=== PATIENT | male | born 1940 | race Caucasian/White ===

== ENCOUNTER → 2016-12-19 | Outpatient (CLI) | payer OTHER ==
[~2016-12-19] MED LIST: ASPEC81 PO; ATOR-26 PO; CHOL20007 PO; CLOP1TAB15 PO; DRV100 PO; METO50TA7 PO; NTRGSL/4; NTRGSL/4 UT; PRED1SUS OPL; TRAM-10 PO
== END | disposition home or self-care (01) ==
LOC: C.LABBC 07:49
PROVIDERS: ATTEND Internal Medicine Cardiovascular Disease
DX: I25.10 Atherosclerotic heart disease of native coronary artery without angina pectoris (principal); E78.5 Hyperlipidemia, unspecified

== ENCOUNTER → 2017-02-20 | Day surgery (SDC) | payer OTHER ==
[2017-02-11 10:43] VITALS: Ht 172.7 cm; Wt 81.8 kg
[~2017-02-20] VITALS: Ht 172.7 cm; Wt 81.8 kg
[~2017-02-20] MED LIST changes: +500ML BSS 0.3ML EPI 1:1000PF IRRIG ONE; +ACETAMINOPHEN 325 MG TAB PO PRN; +AMVISC PLUS 0.8ML SYRINGE INT OCU ONE; +ATROPINE SULFATE 0.1 MG/ML 5ML SYR IV PRN; +AcetaZOLAMIDE 250 MG TAB PO SCH; +BETAXOLOL HCL 0.25% OP SUSP PER DROP CHARGE OPL SCH; +BRIMONIDINE TART 0.2% OP SOLN PER DROP CHARGE ONE; +BSS FLUSH ONE; -DRV100 PO; +ENDOCOAT 0.85ML SYRINGE INT OCU ONE; +EpHEDrine SULFATE INJ 50 MG/ML AMP IV PRN; +EpINEphrine INJ 1MG/ML AMP 1 MG/ML AMP ONE; +FENTANYL CITRATE INJ 50 MCG/1 ML 2 ML VIAL IV PRN; +FLUMAZENIL 0.1 MG/1 ML 10 ML VIAL IV PRN; +HYDROmorphone INJ 2 MG/ML SYR/VIAL IV PRN; +LABETALOL HCL IV 5 MG/ML 20ML IV PRN; +LACTATED RINGER'S 1000ML 500 ML IV SCH; +LIDOCAINE 4% OP SOLN DROP CHARGE ONE; +LIDOCAINE 4% OP SOLN DROP CHARGE OPL SCH; +LIDOCAINE HCL 1% MPF 2 ML VIAL ONE; +MEPERIDINE HCL 25 MG/ML CARP IV PRN; +MIDAZOLAM HCL 1 MG/ML 2ML VIAL ONE; +MIX: 4ML BSS 1ML EPI 1:1000 PF INSTIL ONE; +MOXIFLOXACIN OPH SOLN PER DROP CHARGE ONE; +NALOXONE HCL 0.4 MG/1 ML VIAL/CARP IV PRN; -NTRGSL/4; +OCUCOAT 1 ML SOLN IO ONE; +ONDANSETRON INJ 2 MG/ML 2 ML VIAL IV PRN; +PHENYLEPHRINE 100MCG/ML 5ML SYR IV PRN; +POVIDONE-IODINE OP SOLN 30 ML BTL ONE; +PROPARACAINE 0.5% OP SOLN PER DROP CHARGE OPL SCH; +TOBRAMYCIN/DEXAMETHASONE OPH OINT PER APPLN CHARGE ONE
--- NOTE | 2017-02-20 08:59 | History & Physical Bridge - [place] ---
H&P Re-Evaluation Bridge Note: I have examined the patient, reviewed the History & Physical and in the interval since the performance of the History & Physical I have noted the following changes of clinical significance: No changes noted
[2017-02-20] MEDS: PHENYLEPHRINE HCL 2.5% OP SOLN PER DROP CHARGE OPL SCH ×2 (09:53→09:58)
[2017-02-20] MEDS: TROPICAMIDE 1% OP SOLN PER DROP CHARGE OPL SCH ×2 (09:54→09:59)
[2017-02-20] MEDS: CYCLOPENTOLATE HCL 1% OP SOLN PER DROP CHARGE OPL SCH ×2 (09:55→10:00)
[2017-02-20] MEDS: MOXIFLOXACIN OPH SOLN PER DROP CHARGE OPL SCH ×2 (09:56→10:03)
--- NOTE | 2017-02-20 10:22 | Discharge Instructions-SurgCtr ---
Discharge Instructions Date of Service Feb 20, 2017. Visit Reason for Visit: Cataract Left Eye Discharge Discharge Diagnosis / Problem: lens implant left eye Discharge Goals Goal(s): Improve function Activity Recommendations Activity Limitations: resume your previous activity Lifting Limitations: no more than 10 pounds Exercise/Sports Limitations: gradually increase as tolerated May Resume Sexual Activity: when tolerated Shower/Bathe: tomorrow Driving or Machine Use: resume 1 day after discharge Anesthesia . Post Anesthesia Instructions: If you have had General Anesthesia or IV Sedation: * Do not drive today. * Resume driving when surgeon permits. * Do not make important decisions or sign legal documents today. * Call surgeon for: 1. Temperature elevations greater than 101 degrees F. 2. Uncontrollable pain. 3. Excessive bleeding. 4. Persistent nausea and vomiting. 5. Medication intolerance (nausea, vomiting or rash). * For nausea and vomiting use only clear liquids such as: tea, soda, bouillon until nausea subsides, then gradually increase diet as tolerated. * If you have any concerns or questions, call your surgeon's office. If physician is unavailable and it is an emergency, call 911 or go to the nearest emergency room. . Instructions / Follow-Up Instructions / Follow-Up ACTIVITY RECOMMENDATIONS: * Light activities. * Mild irritation and blurred vision are common for the first few days. * You may walk outside, read, watch television. * Redness around the white part of the eye is common. MEDICATIONS: Resume previous medications unless instructed otherwise by your surgeon. * Take white Diamox (Acetazolamide) tablet at 1 pm today. Start all eye drops at 1 pm today: * Eye drops (today and tomorrow): Prednisone - one drop in operative eye every 3 hours while awake Ofloxacin - one drop in operative eye every 3 hours while awake SPECIAL CARE INSTRUCTIONS: * Tape plastic shield over eye to sleep at night. Call your doctor at with any concerns or problems. FOLLOW UP VISIT: Follow-up with Dr Banuelos at [place] office as scheduled. Diet Recommendations Home Diet: no limitations Procedures Procedures Performed: cataract extraction with lens implant Pending Studies Studies pending at discharge: no Medical Emergencies . Who to Call and When: Medical Emergencies: If at any time you feel your situation is an emergency, please call 911 immediately. . Non-Emergent Contact Non-Emergency issues call your: Qa Software Tester Call Non-Emergent contact if: your pain is not controlled [phone] . . "Provider Documentation" section prepared by Osmin Banuelos.
[2017-02-20 10:24] VITALS: TEMP 36.5
--- NOTE | 2017-02-20 10:24 | [facility] Operative Report ---
Operative Report Date of Service Feb 20, 2017. Operative Report 1. PREOPERATIVE DIAGNOSIS: Senile nuclear cataract, left eye. 2. POSTOPERATIVE DIAGNOSIS: Senile nuclear cataract, left eye. 3. PROCEDURE: Phacoemulsification of left cataract with posterior chamber lens implant, type Bausch [employer] Lomb, model MX60, power +19.5 diopters. ANESTHESIA: Local standby. SURGEON: Dr. Banuelos. COMPLICATIONS: None. OPERATING TIME: 10 minutes. 4. OPERATION AND FINDINGS: DESCRIPTION OF PROCEDURE: The left pupil was dilated. The anesthetic was administered using a topical technique. The let eye was prepped and draped. A speculum was placed. A clear corneal incision was formed. The chamber was filled with Amvisc Plus and Endocoat. Epinephrine solution was used. A paracentesis was placed. A capsulorrhexis was performed. The nucleus was hydrodissected. The lens was removed with phacoemulsification. Time was 6.37 seconds. The aspiration unit was used to remove the cortex. The capsule was filled with Amvisc Plus. The lens implant was folded and placed into the capsule. The incision was hydrated. The Amvisc was aspirated. The wound was secure. The chamber was deep. The pupil was round. Brimonidine, TobraDex ointment and Vigamox solution were placed. The speculum was removed. The patient was returned to the Recovery Room in stable condition. I attest to the content of the Intraoperative Record and any orders documented therein. Any exceptions are noted below. The scribe's documentation has been prepared in my presence, under my direction and personally reviewed by me in its entirety. I confirm that the note above accurately reflects all work, treatment, procedures, and medical decision making performed by me. I personally scribed for Osmin Banuelos M.D. ([email or web address]) on 02/20/17 at 10:24. Electronically submitted by Lima Lamb ([email or web address]).
[2017-02-20 10:51] VITALS: BP 113/76; PULSE 74; O2SAT 95
--- NOTE | 2017-02-20 10:59 | Anesthesia Progress Nt - [facility] ---
Anesthesia Post Op Note Date & Time Feb 20, 2017 at 10:58 Vital Signs Pain Intensity: 0 Vital Signs Past 12 Hours Date Time Temp Pulse Resp B/P Pulse Ox O2 Delivery O2 Flow Rate FiO2 02/20/17 10:51 74 18 113/76 95 Room Air 02/20/17 10:24 36.5 64 16 101/60 94 Room Air 02/20/17 09:41 36.6 67 18 129/74 93 Room Air Notes Mental Status: alert / awake / arousable, participated in evaluation Pt Amnestic to Procedure: Yes Nausea / Vomiting: adequately controlled Pain: adequately controlled Airway Patency, RR, SpO2: stable & adequate BP & HR: stable & adequate Hydration State: stable & adequate Anesthetic Complications: no major complications apparent
== END | disposition home or self-care (01) ==
LOC: X.SURG 09:29
PROVIDERS: ATTEND Specialist
DX: H25.12 Age-related nuclear cataract, left eye (principal); E11.36 Type 2 diabetes mellitus with diabetic cataract; I25.2 Old myocardial infarction; I25.10 Atherosclerotic heart disease of native coronary artery without angina pectoris; Z98.890 Other specified postprocedural states

== ENCOUNTER → 2017-03-13 | Day surgery (SDC) | payer OTHER ==
[2017-03-07 08:19] VITALS: Ht 172.7 cm; Wt 81.8 kg
[~2017-03-13] VITALS: Ht 172.7 cm; Wt 81.8 kg
[~2017-03-13] MED LIST changes: +AcetaZOLAMIDE 250 MG TAB ONE; -AcetaZOLAMIDE 250 MG TAB PO SCH; -BETAXOLOL HCL 0.25% OP SUSP PER DROP CHARGE OPL SCH; +BETAXOLOL HCL 0.25% OP SUSP PER DROP CHARGE OPR SCH; -FENTANYL CITRATE INJ 50 MCG/1 ML 2 ML VIAL IV PRN; +FENTANYL CITRATE INJ 50 MCG/1 ML 2 ML VIAL ONE; -FLUMAZENIL 0.1 MG/1 ML 10 ML VIAL IV PRN; -HYDROmorphone INJ 2 MG/ML SYR/VIAL IV PRN; -LABETALOL HCL IV 5 MG/ML 20ML IV PRN; -LIDOCAINE 4% OP SOLN DROP CHARGE OPL SCH; +LIDOCAINE 4% OP SOLN DROP CHARGE OPR SCH; -MEPERIDINE HCL 25 MG/ML CARP IV PRN; -NALOXONE HCL 0.4 MG/1 ML VIAL/CARP IV PRN; -ONDANSETRON INJ 2 MG/ML 2 ML VIAL IV PRN; -PHENYLEPHRINE 100MCG/ML 5ML SYR IV PRN; -PROPARACAINE 0.5% OP SOLN PER DROP CHARGE OPL SCH; +PROPARACAINE 0.5% OP SOLN PER DROP CHARGE OPR SCH
[2017-03-13] MEDS: PHENYLEPHRINE HCL 2.5% OP SOLN PER DROP CHARGE OPR SCH ×2 (06:44→06:49)
[2017-03-13] MEDS: TROPICAMIDE 1% OP SOLN PER DROP CHARGE OPR SCH ×2 (06:45→06:50)
[2017-03-13] MEDS: CYCLOPENTOLATE HCL 1% OP SOLN PER DROP CHARGE OPR SCH ×2 (06:46→06:51)
[2017-03-13] MEDS: MOXIFLOXACIN OPH SOLN PER DROP CHARGE OPR SCH ×2 (06:47→06:57)
--- NOTE | 2017-03-13 07:31 | Discharge Instructions-SurgCtr ---
Discharge Instructions Date of Service March 13, 2017. Visit Reason for Visit: Cataract Right Eye Discharge Discharge Diagnosis / Problem: lens implant right eye Discharge Goals Goal(s): Improve function Activity Recommendations Activity Limitations: resume your previous activity Lifting Limitations: no more than 10 pounds Exercise/Sports Limitations: gradually increase as tolerated May Resume Sexual Activity: when tolerated Shower/Bathe: tomorrow Driving or Machine Use: resume 1 day after discharge Anesthesia . Post Anesthesia Instructions: If you have had General Anesthesia or IV Sedation: * Do not drive today. * Resume driving when surgeon permits. * Do not make important decisions or sign legal documents today. * Call surgeon for: 1. Temperature elevations greater than 101 degrees F. 2. Uncontrollable pain. 3. Excessive bleeding. 4. Persistent nausea and vomiting. 5. Medication intolerance (nausea, vomiting or rash). * For nausea and vomiting use only clear liquids such as: tea, soda, bouillon until nausea subsides, then gradually increase diet as tolerated. * If you have any concerns or questions, call your surgeon's office. If physician is unavailable and it is an emergency, call 911 or go to the nearest emergency room. . Instructions / Follow-Up Instructions / Follow-Up ACTIVITY RECOMMENDATIONS: * Light activities. * Mild irritation and blurred vision are common for the first few days. * You may walk outside, read, watch television. * Redness around the white part of the eye is common. MEDICATIONS: Resume previous medications unless instructed otherwise by your surgeon. * Take white Diamox (Acetazolamide) tablet at 1 pm today. Start all eye drops at 1 pm today: * Eye drops (today and tomorrow): Prednisone - one drop in operative eye every 3 hours while awake Ofloxacin - one drop in operative eye every 3 hours while awake SPECIAL CARE INSTRUCTIONS: * Tape plastic shield over eye to sleep at night. Call your doctor at with any concerns or problems. FOLLOW UP VISIT: Follow-up with Dr Banuelos at [place] office as scheduled. Diet Recommendations Home Diet: no limitations Procedures Procedures Performed: cataract extraction with lens implant Pending Studies Studies pending at discharge: no Medical Emergencies . Who to Call and When: Medical Emergencies: If at any time you feel your situation is an emergency, please call 911 immediately. . Non-Emergent Contact Non-Emergency issues call your: Principal Electrical Engineer Call Non-Emergent contact if: your pain is not controlled [phone] . . "Provider Documentation" section prepared by Osmin Banuelos. .
--- NOTE | 2017-03-13 07:33 | [facility] Operative Report ---
Operative Report Date of Service March 13, 2017. Operative Report 1. PREOPERATIVE DIAGNOSIS: Senile nuclear cataract, right eye. 2. POSTOPERATIVE DIAGNOSIS: Senile nuclear cataract, right eye. 3. PROCEDURE: Phacoemulsification of right cataract with posterior chamber lens implant, type Bausch [employer] Lomb, model MX60, power +18.0 diopters. ANESTHESIA: Local standby. SURGEON: Dr. Banuelos. COMPLICATIONS: None. OPERATING TIME: 10 minutes. 4. OPERATION AND FINDINGS: DESCRIPTION OF PROCEDURE: The right pupil was dilated. The anesthetic was administered using a topical technique. The right eye was prepped and draped. A speculum was placed. A clear corneal incision was formed. The chamber was filled with Amvisc Plus and Endocoat. Epinephrine solution was used. A paracentesis was placed. A capsulorrhexis was performed. The nucleus was hydrodissected. The lens was removed with phacoemulsification. Time was 3.56 seconds. The aspiration unit was used to remove the cortex. The capsule was filled with Amvisc Plus. The lens implant was folded and placed into the capsule. The incision was hydrated. The Amvisc was aspirated. The wound was secure. The chamber was deep. The pupil was round. Brimonidine, TobraDex ointment and Vigamox solution were placed. The speculum was removed. The patient was returned to the Recovery Room in stable condition. I attest to the content of the Intraoperative Record and any orders documented therein. Any exceptions are noted below. The scribe's documentation has been prepared in my presence, under my direction and personally reviewed by me in its entirety. I confirm that the note above accurately reflects all work, treatment, procedures, and medical decision making performed by me. I personally scribed for Osmin Banuelos M.D. ([email or web address]) on 03/13/17 at 07:33. Electronically submitted by Lima Lamb ([email or web address]).
[2017-03-13 07:35] VITALS: TEMP 36.3
--- NOTE | 2017-03-13 07:49 | Anesthesia Progress Nt - [facility] ---
Anesthesia Post Op Note Date & Time March 13, 2017 at 07:49 Vital Signs Pain Intensity: 0 Vital Signs Past 12 Hours Date Time Temp Pulse Resp B/P Pulse Ox O2 Delivery O2 Flow Rate FiO2 03/13/17 07:35 36.3 55 16 114/69 95 Room Air 03/13/17 06:33 36.1 60 16 112/75 94 Room Air Notes Mental Status: alert / awake / arousable, participated in evaluation Pt Amnestic to Procedure: Yes Nausea / Vomiting: adequately controlled Pain: adequately controlled Airway Patency, RR, SpO2: stable & adequate BP & HR: stable & adequate Hydration State: stable & adequate Anesthetic Complications: no major complications apparent
[2017-03-13 07:54] VITALS: BP 115/67; PULSE 52; O2SAT 95
== END | disposition home or self-care (01) ==
LOC: X.SURG 06:23
PROVIDERS: ATTEND Specialist
DX: H25.11 Age-related nuclear cataract, right eye (principal); I25.2 Old myocardial infarction; I25.10 Atherosclerotic heart disease of native coronary artery without angina pectoris; I10 Essential (primary) hypertension; E11.9 Type 2 diabetes mellitus without complications; Z98.42 Cataract extraction status, left eye; Z90.89 Acquired absence of other organs; Z98.890 Other specified postprocedural states

== ENCOUNTER → 2017-03-15 | Outpatient (CLI) | payer OTHER ==
[~2017-03-15] MED LIST changes: -500ML BSS 0.3ML EPI 1:1000PF IRRIG ONE; -ACETAMINOPHEN 325 MG TAB PO PRN; -AMVISC PLUS 0.8ML SYRINGE INT OCU ONE; -ATROPINE SULFATE 0.1 MG/ML 5ML SYR IV PRN; -AcetaZOLAMIDE 250 MG TAB ONE; -BETAXOLOL HCL 0.25% OP SUSP PER DROP CHARGE OPR SCH; -BRIMONIDINE TART 0.2% OP SOLN PER DROP CHARGE ONE; -BSS FLUSH ONE; -ENDOCOAT 0.85ML SYRINGE INT OCU ONE; -EpHEDrine SULFATE INJ 50 MG/ML AMP IV PRN; -EpINEphrine INJ 1MG/ML AMP 1 MG/ML AMP ONE; -FENTANYL CITRATE INJ 50 MCG/1 ML 2 ML VIAL ONE; -LACTATED RINGER'S 1000ML 500 ML IV SCH; -LIDOCAINE 4% OP SOLN DROP CHARGE ONE; -LIDOCAINE 4% OP SOLN DROP CHARGE OPR SCH; -LIDOCAINE HCL 1% MPF 2 ML VIAL ONE; -MIDAZOLAM HCL 1 MG/ML 2ML VIAL ONE; -MIX: 4ML BSS 1ML EPI 1:1000 PF INSTIL ONE; -MOXIFLOXACIN OPH SOLN PER DROP CHARGE ONE; -OCUCOAT 1 ML SOLN IO ONE; -POVIDONE-IODINE OP SOLN 30 ML BTL ONE; -PROPARACAINE 0.5% OP SOLN PER DROP CHARGE OPR SCH; -TOBRAMYCIN/DEXAMETHASONE OPH OINT PER APPLN CHARGE ONE
[2017-03-15 17:01] LABS: BASO % 0.3 %; BASO ABS # 0.02 K/uL (0-0.2); COMPLETE YES; EOS % 1.9 %; HEMATOCRIT 45.6 % (42-52); IG% 0.2 %; LYMPH % 34.2 %; LYMPH ABS # 2.14 K/uL (1.2-3.4); MEAN CELL VOLUME 88.9 fL (80-100); MEAN CORPUSCULAR HEMOGLOBIN 29.2 pg (25-34); MEAN CORPUSCULAR HGB CONC 32.9 g/dl (32-36); MEAN PLATELET VOLUME 9.6 fL (7.4-10.4); NEUT % 56.4 %; PLATELET COUNT 221 K/uL (130-400); RED BLOOD COUNT 5.13 M/uL (4.7-6.1); WHITE BLOOD COUNT 6.26 K/uL (4.8-10.8)
[2017-03-15 17:17] LABS: ALB/GLOB RATIO 1.1 (0.9-2); ALKALINE PHOSPHATASE 85 U/L (45-117); ALT/SGPT 29 U/L (12-78); AST/SGOT 18 U/L (15-37); BLOOD UREA NITROGEN 25 mg/dl (7-18); CALCIUM 8.8 mg/dl (8.5-10.1); CARBON DIOXIDE 24 mmol/L (21-32); CHLORIDE 113 mmol/L (98-107); CREATININE 0.94 mg/dl (0.60-1.40); GLUCOSE 132 mg/dl (70-99); HDL CHOLESTEROL 47 mg/dl; SODIUM 145 mmol/L (136-145)
[2017-03-15 17:28] LABS: CHOLESTEROL 117 mg/dl (0-200); CHOLESTEROL/HDL RATIO 2.5; LDL CHOLESTEROL CALCULATED 33 mg/dl; TRIGLYCERIDES 183 mg/dl (0-150); VERY LOW DENSITY LIPOPROT CALC 37 mg/dl
[2017-03-16 07:24] LABS: ESTIMATED AVERAGE GLUCOSE 134 mg/dl; HA1C FLAG Normal (Normal)
== END | disposition home or self-care (01) ==
LOC: C.LABBC 13:45
PROVIDERS: ATTEND Internal Medicine Geriatric Medicine
DX: E78.5 Hyperlipidemia, unspecified (principal); M85.80 Other specified disorders of bone density and structure, unspecified site; E11.9 Type 2 diabetes mellitus without complications; M19.90 Unspecified osteoarthritis, unspecified site; E55.9 Vitamin D deficiency, unspecified

== ENCOUNTER → 2017-06-24 | Outpatient (CLI) | payer OTHER ==
--- NOTE | 2017-06-24 11:23 | DIAGNOSTIC IMAGING REPORT ---
TWO VIEW CHEST CLINICAL HISTORY: Cough of several weeks' duration. FINDINGS: PA and lateral chest radiographs are compared to study dated 06/24/2017. The cardiomediastinal silhouette is unremarkable. There is mild atherosclerotic calcification of the thoracic aorta. There is mild bibasilar atelectasis. The lungs and pleural spaces are otherwise clear. There is no pneumothorax. The skeletal structures are osteopenic. Degenerative change and scoliosis are seen in the thoracic spine. 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 IMPRESSION: No active disease in the chest. Electronically signed by: Angus Rao M.D. 06/24/2017 11:22 AM Dictated Date/Time: 06/24/2017 11:21 AM
== END | disposition home or self-care (01) ==
LOC: C.RADBC 10:52
PROVIDERS: ATTEND Internal Medicine Geriatric Medicine
DX: R05 Cough (principal)

== ENCOUNTER → 2017-10-08 | Outpatient (CLI) | payer OTHER ==
[2017-10-08 17:04] LABS: ALT/SGPT 33 U/L (12-78); BLOOD UREA NITROGEN 19 mg/dl (7-18); BUN/CREATININE RATIO 21.7 (10-20); CALCIUM 9.2 mg/dl (8.5-10.1); CARBON DIOXIDE 29 mmol/L (21-32); CHLORIDE 106 mmol/L (98-107); GLUCOSE 85 mg/dl (70-99); SODIUM 140 mmol/L (136-145)
[2017-10-08 17:07] LABS: ALB/GLOB RATIO 1.1 (0.9-2); ALKALINE PHOSPHATASE 88 U/L (45-117); AST/SGOT 23 U/L (15-37)
[2017-10-09 06:50] LABS: ESTIMATED AVERAGE GLUCOSE 134 mg/dl; HA1C FLAG Normal (Normal)
== END | disposition home or self-care (01) ==
LOC: C.LABBC 13:48
PROVIDERS: ATTEND Physician Assistant Medical
DX: I25.10 Atherosclerotic heart disease of native coronary artery without angina pectoris (principal); E11.9 Type 2 diabetes mellitus without complications; E55.9 Vitamin D deficiency, unspecified

== ENCOUNTER → 2018-03-17 | Outpatient (CLI) | payer OTHER ==
[~2018-03-17] MED LIST changes: +ASPI-319 PO; -METO50TA7 PO; +METO50TA8 PO; +ONDA8TAB62 SL
--- NOTE | 2018-03-17 11:53 | DIAGNOSTIC IMAGING REPORT ---
KUB CLINICAL HISTORY: 77 years-old Male presenting with R10.9 not feeling well for over 2 days. TECHNIQUE: Single supine view of the abdomen was obtained. COMPARISON: None. FINDINGS: Nonobstructive bowel gas pattern. No gross pneumoperitoneum allowing for supine technique. Allowing for bowel gas and stool, no calcifications to suggest nephrolithiasis. Degenerative changes of the spine. Significant dextrocurvature of the lumbar spine. Transitional lumbosacral anatomy of L5. Lung bases clear. IMPRESSION: 1. No acute intra-abdominal pathology. Electronically signed by: Ta Carrasquillo M.D. 03/17/2018 11:52 AM Dictated Date/Time: 03/17/2018 11:51 AM
[2018-03-17 13:11] LABS: BASO % 0.1 %; BASO ABS # 0.01 K/uL (0-0.2); HEMATOCRIT 45.8 % (42-52); HEMOGLOBIN 16.3 g/dL (14.0-18.0); IG# 0.02 K/uL (0.00-0.02); LYMPH % 12.4 %; LYMPH ABS # 1.37 K/uL (1.2-3.4); MEAN CELL VOLUME 84.8 fL (80-100); MEAN CORPUSCULAR HEMOGLOBIN 30.2 pg (25-34); MEAN CORPUSCULAR HGB CONC 35.6 g/dl (32-36); MEAN PLATELET VOLUME 10.4 fL (7.4-10.4); MONO % 9.8 %; MONO ABS # 1.08 K/uL (0.11-0.59); NEUT % 77.5 %; NEUT ABS # 8.58 K/uL (1.4-6.5); PLATELET COUNT 177 K/uL (130-400); RED CELL DISTRIBUTION WIDTH CV 12.9 % (11.5-14.5); RED CELL DISTRIBUTION WIDTH SD 40.1 fL (36.4-46.3); WHITE BLOOD COUNT 11.06 K/uL (4.8-10.8)
[2018-03-17 13:48] LABS: ALBUMIN 3.1 gm/dl (3.4-5.0); ALT/SGPT 21 U/L (12-78); AST/SGOT 17 U/L (15-37); BLOOD UREA NITROGEN 26 mg/dl (7-18); CALCIUM 8.2 mg/dl (8.5-10.1); CARBON DIOXIDE 26 mmol/L (21-32); CREATININE 0.84 mg/dl (0.60-1.40); GLUCOSE 137 mg/dl (70-99); POTASSIUM 3.7 mmol/L (3.5-5.1); SODIUM 136 mmol/L (136-145)
[2018-03-17 13:52] LABS: ALKALINE PHOSPHATASE 67 U/L (45-117)
== END | disposition home or self-care (01) ==
LOC: C.RADBC 11:26
PROVIDERS: ATTEND Nurse Practitioner Adult Health
DX: R10.9 Unspecified abdominal pain (principal)

== ENCOUNTER 2018-03-18 15:54 | Emergency (ER) | payer OTHER ==
[~2018-03-18] VITALS: Ht 172.7 cm; Wt 79.7 kg
[~2018-03-18 15:54] MED LIST changes: -ASPI-319 PO; -METO50TA8 PO; -ONDA8TAB62 SL
[2018-03-18 15:56] VITALS: Ht 172.7 cm; Wt 79.7 kg
[2018-03-18] MEDS ORDERED: SODIUM CHLORIDE 0.9% 1000ML 500 ML IV STA (16:09)
[2018-03-18] MEDS ORDERED: ONDANSETRON INJ 2 MG/ML 2 ML VIAL IV STA (16:09)
[2018-03-18] MEDS ORDERED: KETOROLAC TROMETHAMINE 30 MG/ML VIAL IV STA (16:09)
--- NOTE | 2018-03-18 16:36 | EMERGENCY ROOM VISIT NOTE ---
History Report prepared by Shilpa: Hola Yip Under the Supervision of: Dr. Angus Pace M.D. First contact with patient: 16:01 Chief Complaint: ABDOMINAL PAIN Stated Complaint: STOMACH PAIN Nursing Triage Summary: abd pain , N/V History of Present Illness The patient is a 77 year old male who presents to the Emergency Room with complaints of intermittent abdominal pressure beginning four nights ago. He currently rates his discomfort a 5/10 in severity. The patient states he woke in the middle of Saturday night with a bloated abdomen and nausea. He reports he has been experiencing extreme fatigue, nausea, and vomiting. The patient notes he had diarrhea for the past three days, but he has not had any today. He states also has been vomiting, but he has not vomited today. The patient reports he cannot eat much, and his pressure moves around his abdomen. He notes he was able to eat a few slices of a banana and drink an Ensure and some water today. The patient states he cannot sleep at night with this discomfort even though he is extremely fatigued. He reports Saturday was the worst day of his symptoms. The patient notes he feels thirsty but is afraid to drink too much and vomit. He states his had similar symptoms , but they resolved that evening. The patient reports he was evaluated by his PCP yesterday and was told he had a viral infection. He notes his blood work showed an elevated WBC, and he had a normal upper abdominal x-ray. The patient denies a fever, blood in his vomit, blood in his urine, blood in his stool, shortness of breath, chest pain, and a history of abdominal surgeries. Source of History: patient Onset: four nights ago Position: abdomen Symptom Intensity: 5/10 Quality: other (pressure) Timing: intermittent Associated Symptoms: + nausea, + vomiting, + diarrhea, + fatigue, No fevers , No chest pain, No SOB Note: Associated symptoms: bloated abdomen, in ability to sleep Denies: blood in his vomit, blood in his urine, blood in his stool Review of Systems See HPI for pertinent positives & negatives. A total of 10 systems reviewed and were otherwise negative. Past Medical & Surgical Medical Problems: (1) Diabetes (2) Heart disease (3) Myocardial infarction Family History Cancer Diabetes mellitus FH: heart disease Social History Smoking Status: Former Smoker Alcohol Use: occasionally Marital Status: Housing Status: other (independent living) Occupation Status: retired Current/Historical Medications Scheduled Aspirin Enteric Coated (Ecotrin Or Generic), 81 MG PO DAILY Atorvastatin (Lipitor), 80 MG PO QAM Cholecalciferol (Vitamin D3), 2 TABS PO QAM Clopidogrel (Plavix), 75 MG PO QAM Metoprolol Succ (Toprol Xl) (Toprol-Xl), 50 MG PO QAM Scheduled PRN Nitroglycerin (Nitrostat), 0.4 MG UT UD PRN for Chest Pain Ondansetron Odt (Zofran Odt), 8 MG SL Q8 PRN for Nausea Tramadol (Ultram), 50 MG PO Q4H PRN for Pain Allergies Coded Allergies: Iodinated Contrast Media (Verified Allergy, Unknown, TACHYCARDIA, PANIC ATTACK, 03/18/18) Physical Exam Vital Signs Date Time Temp Pulse Resp B/P (MAP) Pulse Ox O2 Delivery O2 Flow Rate FiO2 03/18/18 18:07 36.7 70 21 139/64 95 03/18/18 17:58 36.7 70 21 139/64 95 Room Air 03/18/18 17:08 67 20 120/72 95 Room Air 03/18/18 15:56 36.7 96 20 136/86 96 Room Air Physical Exam GENERAL: Patient is in no acute distress. HEENT: No acute trauma, normocephalic atraumatic, mucous membranes moist, no nasal congestion, no scleral icterus. NECK: No stridor, no adenopathy, no meningismus, trachea is midline. LUNGS: Clear to auscultation bilaterally, no wheeze, no rhonchi, breath sounds equal. HEART: Without murmurs gallops or rubs, regular rate and rhythm. ABDOMEN: Soft, mildly diffusely tender, bowel sounds positive, no hernias, no peritonitis. EXTREMITIES: No cyanosis or edema, full range of motion of all the joints without pain or difficulty, no signs for acute trauma. NEUROLOGIC: Oriented x 3, no acute motor or sensory deficits, no focal weakness. SKIN: No rash, no jaundice, no diaphoresis. Medical Decision & Procedures ER Provider Diagnostic Interpretation: CT results as stated below per my review and radiologist interpretation: CT SCAN OF THE ABDOMEN AND PELVIS WITHOUT CONTRAST CLINICAL HISTORY: Generalized abdominal pain. Possible bowel obstruction. COMPARISON STUDY: No previous studies for comparison. TECHNIQUE: CT scan of the abdomen and pelvis was performed from the lung bases to the proximal femurs. Images are reviewed in the axial, sagittal, and coronal planes. IV contrast was not administered for this examination. A dose lowering technique was utilized adhering to the principles of ALARA. CT DOSE: 569.38 mGy.cm FINDINGS: Lower chest: There are mild cylindrical bronchiectatic changes. There is a small fat-containing right-sided Bochdalek hernia. Liver: There is a 7 mm central hepatic hypodensity. There is a 9 mm left lobe hepatic hypodensity. Gallbladder: Mildly distended. No calculi are visualized on CT scanning. Spleen: Normal in size and attenuation. Pancreas: Unremarkable. Adrenal glands: Unremarkable. Kidneys: No renal, ureteral, or bladder calculi are visualized. There are left renal parapelvic cysts. Bowel: There are no transition zones indicate bowel obstruction. There is no evidence of acute diverticulitis. There is no evidence of acute appendicitis. There is equivocal bowel wall thickening involving proximal jejunal loops. Peritoneum: There is no intraperitoneal free air or abdominal ascites. There is a small fat and fluid containing left inguinal hernia Vasculature: The abdominal aorta is normal in course and caliber. Adenopathy: There is a joe mesentery with slightly prominent central mesenteric lymph nodes. This is a nonspecific finding. This finding has been reported in mesenteritis, vasculitides, neoplastic processes, as well as other entities. Pelvic viscera: The bladder, and pelvic viscera are unremarkable. Skeletal structures: There is a scoliosis. There is bilateral L5 spondylolysis. IMPRESSION: 1. Examination limited due to lack of intravenous and oral contrast 2. No evidence of bowel obstruction. No evidence of free air 3. No evidence of acute diverticulitis. No evidence of acute appendicitis 4. No renal, ureteral, or bladder calculi identified 5. Suspected mild bowel wall thickening involving proximal jejunal loops 6. Joe mesentery with mildly prominent central mesenteric lymph nodes. This is a nonspecific finding, with a wide differential. Electronically signed by: Eze Rodriguez M.D. 03/18/2018 5:11 PM Dictated Date/Time: 03/18/2018 5:02 PM Laboratory Results 03/18/18 16:27 Red Blood Count 5.33, Mean Corpuscular Volume 83.9, Mean Corpuscular Hemoglobin 29.8, Mean Corpuscular Hemoglobin Concent 35.6, Mean Platelet Volume 9.5, Neutrophils (%) (Auto) 75.6, Lymphocytes (%) (Auto) 14.8, Monocytes (%) (Auto) 9.3, Eosinophils (%) (Auto) 0.0, Basophils (%) (Auto) 0.1, Neutrophils # (Auto) 8.10, Lymphocytes # (Auto) 1.58, Monocytes # (Auto) 1.00, Eosinophils # (Auto) 0.00, Basophils # (Auto) 0.01 03/18/18 16:27 Test 03/18/18 16:27 White Blood Count 10.71 K/uL (4.8-10.8) Red Blood Count 5.33 M/uL (4.7-6.1) Hemoglobin 15.9 g/dL (14.0-18.0) Hematocrit 44.7 % (42-52) Mean Corpuscular Volume 83.9 fL (80-100) Mean Corpuscular Hemoglobin 29.8 pg (25-34) Mean Corpuscular Hemoglobin Concent 35.6 g/dl (32-36) Platelet Count 173 K/uL (130-400) Mean Platelet Volume 9.5 fL (7.4-10.4) Neutrophils (%) (Auto) 75.6 % Lymphocytes (%) (Auto) 14.8 % Monocytes (%) (Auto) 9.3 % Eosinophils (%) (Auto) 0.0 % Basophils (%) (Auto) 0.1 % Neutrophils # (Auto) 8.10 K/uL (1.4-6.5) Lymphocytes # (Auto) 1.58 K/uL (1.2-3.4) Monocytes # (Auto) 1.00 K/uL (0.11-0.59) Eosinophils # (Auto) 0.00 K/uL (0-0.5) Basophils # (Auto) 0.01 K/uL (0-0.2) RDW Standard Deviation 38.8 fL (36.4-46.3) RDW Coefficient of Variation 12.9 % (11.5-14.5) Immature Granulocyte % (Auto) 0.2 % Immature Granulocyte # (Auto) 0.02 K/uL (0.00-0.02) Urine Color YELLOW Urine Appearance CLEAR (CLEAR) Urine pH 5.5 (4.5-7.5) Urine Specific [place] 1.026 (1.000-1.030) Urine Protein 1+ (NEG) Urine Glucose (UA) NEG (NEG) Urine Ketones 3+ (NEG) Urine Occult Blood NEG (NEG) Urine Nitrite NEG (NEG) Urine Bilirubin NEG (NEG) Urine Urobilinogen NEG (NEG) Urine Leukocyte Esterase NEG (NEG) Urine WBC (Auto) 1-5 /hpf (0-5) Urine RBC (Auto) 0-4 /hpf (0-4) Urine Hyaline Casts (Auto) 5-10 /lpf (0-5) Urine Epithelial Cells (Auto) 5-10 /lpf (0-5) Urine Bacteria (Auto) NEG (NEG) Anion Gap 10.0 mmol/L (3-11) Est Creatinine Clear Calc Drug Dose 73.3 ml/min Estimated GFR () 99.0 Estimated GFR (Non- 85.4 BUN/Creatinine Ratio 29.3 (10-20) Calcium Level 8.4 mg/dl (8.5-10.1) Magnesium Level 2.3 mg/dl (1.8-2.4) Total Bilirubin 0.7 mg/dl (0.2-1) Aspartate Amino Transf (AST/SGOT) 18 U/L (15-37) Alanine Aminotransferase (ALT/SGPT) 19 U/L (12-78) Alkaline Phosphatase 63 U/L (45-117) Total Protein 6.9 gm/dl (6.4-8.2) Albumin 3.1 gm/dl (3.4-5.0) Globulin 3.8 gm/dl (2.5-4.0) Albumin/Globulin Ratio 0.8 (0.9-2) Lipase 65 U/L (73-393) Laboratory results reviewed by me. Medications Administered Medications (Trade) Dose Ordered Sig/Ly Route Start Time Stop Time Status Last Admin Dose Admin Sodium Chloride 500 ml @ 999 mls/hr Q31M STAT IV 03/18/18 16:09 03/18/18 16:39 DC 03/18/18 16:32 999 MLS/HR Ondansetron HCl (Zofran Inj) 4 mg NOW STAT IV 03/18/18 16:09 03/18/18 16:13 DC 03/18/18 16:32 4 MG Ketorolac Tromethamine (Toradol Inj) 15 mg NOW STAT IV 03/18/18 16:09 03/18/18 16:13 DC 03/18/18 16:33 15 MG Sodium Chloride 500 ml @ 999 mls/hr Q31M STAT IV 03/18/18 17:09 03/18/18 17:39 DC 03/18/18 17:14 999 MLS/HR Acetaminophen (Tylenol Tab) 1,000 mg NOW STAT PO 03/18/18 17:55 03/18/18 17:56 DC 03/18/18 18:01 1,000 MG ECG Per My Interpretation Indication: abdominal pain Rate (beats per minute): 66 Rhythm: normal sinus Findings: nonspecific-ST abn, no ectopy, other (No PVCs. No ST elevation.) ED Course 1603: The patient was evaluated in room C05. A complete history and physical exam was performed. 1609: Ordered Toradol 15mg IV, Zofran 4mg IV, Sodium Chloride 500 ml @ 999 mls/ hr IV 1709: Ordered Sodium Chloride 500 ml @ 999 mls/hr IV 1747: Reevaluated the patient. Discussed results and discharge instructions: he verbalized understanding and agreement. The patient is ready for discharge when he receives his medication. 1755: Ordered Acetaminophen 1000mg PO Medical Decision The patient is a 77 year old male who presents to the ED with complaints of intermittent abdominal pressure. Differential diagnoses considered include diverticulitis, colitis, electrolyte imbalance, anemia, dehydration, viral or food borne illness, pancreatitis, appendicitis. There is no leukocytosis or concerning anemia. No significant electrolyte abnormality, kidney failure, hepatitis or pancreatitis. Urinalysis does not show infection but dehydration was suggested by UA. Abdominal and pelvis CT shows some small bowel edema as well as some adenopathy, no bowel obstruction, no colitis or diverticulitis. On exam, the patient was not febrile or toxic. There was no peritonitis. The patient received IV saline, he was given IV Toradol and IV Zofran. He received oral Tylenol. The patient feels improved. I do think he can be discharged with a bland diet, Tylenol, rest and hydration. He will need to see his family doctor in follow- up. If he is worsening, he can return for reassessment. This illness is likely viral or foodborne. Medication Reconcilliation Current Medication List: was personally reviewed by me Blood Pressure Screening Patient's blood pressure: Elevated blood pressure Blood pressure disposition: Elevated BP felt to be situational Impression Primary Impression: Dehydration Additional Impression: Nausea, vomiting, and diarrhea Scribe Attestation The scribe's documentation has been prepared under my direction and personally reviewed by me in its entirety. I confirm that the note above accurately reflects all work, treatment, procedures, and medical decision making performed by me. Departure Information Dispostion Home / Self-Care Referrals William Cordova M.D. (PCP) Forms Call Back Authorization, HOME CARE DOCUMENTATION FORM, IMPORTANT VISIT INFORMATION Patient Instructions My [facility] [employer] Additional Instructions bland diet---crackers, soup, toast, gatorade, rice tylenol for pain rest see elenita lebron this week for a recheck--may need repeat studies to ensure improvement return if worsening as we discussed Problem Qualifiers
[2018-03-18] MEDS ORDERED: METO50TA8 PO (16:43)
[2018-03-18 16:44] LABS: BASO % 0.1 %; BASO ABS # 0.01 K/uL (0-0.2); HEMATOCRIT 44.7 % (42-52); HEMOGLOBIN 15.9 g/dL (14.0-18.0); IG# 0.02 K/uL (0.00-0.02); LYMPH % 14.8 %; LYMPH ABS # 1.58 K/uL (1.2-3.4); MEAN CELL VOLUME 83.9 fL (80-100); MEAN CORPUSCULAR HEMOGLOBIN 29.8 pg (25-34); MEAN CORPUSCULAR HGB CONC 35.6 g/dl (32-36); MEAN PLATELET VOLUME 9.5 fL (7.4-10.4); MONO % 9.3 %; NEUT % 75.6 %; PLATELET COUNT 173 K/uL (130-400); RED CELL DISTRIBUTION WIDTH CV 12.9 % (11.5-14.5); RED CELL DISTRIBUTION WIDTH SD 38.8 fL (36.4-46.3); WHITE BLOOD COUNT 10.71 K/uL (4.8-10.8)
[2018-03-18] MEDS ORDERED: ONDA8TAB62 SL (16:51)
[2018-03-18] MEDS ORDERED: ASPI-319 PO (16:51)
[2018-03-18 17:02] LABS: ALBUMIN 3.1 gm/dl (3.4-5.0); CALCIUM 8.4 mg/dl (8.5-10.1); CREATININE 0.79 mg/dl (0.60-1.40); POTASSIUM 3.5 mmol/L (3.5-5.1)
[2018-03-18 17:04] LABS: TOTAL PROTEIN 6.9 gm/dl (6.4-8.2)
[2018-03-18] MEDS ORDERED: SODIUM CHLORIDE 0.9% 500ML 500 ML IV STA (17:09)
--- NOTE | 2018-03-18 17:12 | DIAGNOSTIC IMAGING REPORT ---
CT SCAN OF THE ABDOMEN AND PELVIS WITHOUT CONTRAST CLINICAL HISTORY: Generalized abdominal pain. Possible bowel obstruction. COMPARISON STUDY: No previous studies for comparison. TECHNIQUE: CT scan of the abdomen and pelvis was performed from the lung bases to the proximal femurs. Images are reviewed in the axial, sagittal, and coronal planes. IV contrast was not administered for this examination. A dose lowering technique was utilized adhering to the principles of ALARA. CT DOSE: 569.38 mGy.cm FINDINGS: Lower chest: There are mild cylindrical bronchiectatic changes. There is a small fat-containing right-sided Bochdalek hernia. Liver: There is a 7 mm central hepatic hypodensity. There is a 9 mm left lobe hepatic hypodensity. Gallbladder: Mildly distended. No calculi are visualized on CT scanning. Spleen: Normal in size and attenuation. Pancreas: Unremarkable. Adrenal glands: Unremarkable. Kidneys: No renal, ureteral, or bladder calculi are visualized. There are left renal parapelvic cysts. Bowel: There are no transition zones indicate bowel obstruction. There is no evidence of acute diverticulitis. There is no evidence of acute appendicitis. There is equivocal bowel wall thickening involving proximal jejunal loops. Peritoneum: There is no intraperitoneal free air or abdominal ascites. There is a small fat and fluid containing left inguinal hernia Vasculature: The abdominal aorta is normal in course and caliber. Adenopathy: There is a joe mesentery with slightly prominent central mesenteric lymph nodes. This is a nonspecific finding. This finding has been reported in mesenteritis, vasculitides, neoplastic processes, as well as other entities. Pelvic viscera: The bladder, and pelvic viscera are unremarkable. Skeletal structures: There is a scoliosis. There is bilateral L5 spondylolysis. IMPRESSION: 1. Examination limited due to lack of intravenous and oral contrast 2. No evidence of bowel obstruction. No evidence of free air 3. No evidence of acute diverticulitis. No evidence of acute appendicitis 4. No renal, ureteral, or bladder calculi identified 5. Suspected mild bowel wall thickening involving proximal jejunal loops 6. Joe mesentery with mildly prominent central mesenteric lymph nodes. This is a nonspecific finding, with a wide differential. Electronically signed by: Eze Rodriguez M.D. 03/18/2018 5:11 PM Dictated Date/Time: 03/18/2018 5:02 PM
[2018-03-18] MEDS ORDERED: ACETAMINOPHEN 500 MG TAB PO STA (17:55)
[2018-03-18 18:07] VITALS: BP 139/64; PULSE 70; TEMP 36.7; O2SAT 95
== END 2018-03-18 18:07 | disposition home or self-care (01) ==
LOC: C.EDB 15:55 → C.EDC 18:07
DX: R19.7 Diarrhea, unspecified (principal); R11.2 Nausea with vomiting, unspecified; E86.0 Dehydration; R60.0 Localized edema; R59.9 Enlarged lymph nodes, unspecified; Z87.891 Personal history of nicotine dependence; Z79.82 Long term (current) use of aspirin; I25.2 Old myocardial infarction; Z79.02 Long term (current) use of antithrombotics/antiplatelets; E11.9 Type 2 diabetes mellitus without complications; Z91.041 Radiographic dye allergy status